=== PATIENT | male | born 1960 | race African-American/Black ===

== ENCOUNTER 2020-09-10 10:36 | Emergency (ER) | payer BC ==
[~2020-09-10] VITALS: Ht 167.6 cm; Wt 61.0 kg
[2020-09-10] MEDS ORDERED: IV NORMAL SALINE 1000ML BAG 1,000 ML IV ONE (11:00)
--- NOTE | 2020-09-10 11:14 | PHYS DOC ---
Past Medical History Past Medical History: No Pertinent History Past Surgical History: No Surgical History Smoking Status: Current Every Day Smoker Alcohol Use: Heavy Drug Use: None General Adult EDM: Chief Complaint: GROIN PAIN HPI: HPI: Patient is a 59 year old male presents with report of left groin pain that started on 08/28/2020. Patient reports he works at a [employer] and has been lifting and moving heavy objects. Patient reports concern for possible hernia. Patient reports some scrotal swelling and tenderness. Denies any nausea or vomiting. Denies fever or chills. Denies dysuria. Denies penile discharge. Patient denies concern for STD. Patient does report swelling has significantly improved during this period of time. Review of Systems: Review of Systems: Constitutional: Denies fever or chills Eyes: Denies redness or eye pain HENT: Denies nasal congestion or sore throat Respiratory: Denies cough or shortness of breath Cardiovascular: Denies chest pain or palpitations GI: Denies left lower quadrant abdominal pain; denies nausea or vomiting : Denies dysuria, penile discharge, or hematuria; reports scrotal swelling and pain on left Musculoskeletal: Denies back pain or joint pain Integument: Denies rash or skin lesions Neurologic: Denies headache, focal weakness or sensory changes Complete systems were reviewed and found to be within normal limits, except as documented in this note. Current Medications: Current Medications Medications (Trade) Dose Ordered Sig/Vero Start Time Stop Time Status Last Admin Dose Admin Ketorolac Tromethamine (Toradol 15mg Vial) 15 mg 1X ONCE 09/10/20 11:15 09/10/20 11:16 UNV Sodium Chloride 1,000 ml @ 1,000 mls/hr 1X ONCE 09/10/20 11:00 09/10/20 11:59 UNV Physical Exam: PE: Constitutional: Well developed, well nourished, no acute distress, non-toxic appearance HENT: Normocephalic, atraumatic Eyes: Conjunctiva normal, no discharge Neck: Normal range of motion, no tenderness, supple Lungs & Thorax: No respiratory distress, equal chest rise and fall Abdomen: Soft, no tenderness, no guarding/rebound tenderness : Left scrotal swelling, left testicular fullness and tenderness on palpation, no penile discharge Skin: Warm, dry, no erythema, no rash Extremities: No tenderness, ROM intact, no edema, left femoral lymphadenopathy noted Neurologic: Alert and oriented X 3, no focal deficits noted Psychologic: Affect normal, judgment normal Current Patient Data: Vital Signs: Vital Signs Date Time Temp Pulse Resp B/P (MAP) Pulse Ox O2 Delivery O2 Flow Rate FiO2 09/10/20 10:54 98.4 87 18 166/77 (106) 99 Room Air 98.4 EKG: EKG: [] Radiology/Procedures: Radiology/Procedures: PROCEDURE: TESTICULAR/SCROTUM EXAM: Scrotal sonogram. HISTORY: Left testicular pain and swelling. TECHNIQUE: Riley scale and color Doppler sonographic imaging of the testes with spectral waveform analysis was performed. COMPARISON: None. FINDINGS: The testes are normal in size and demonstrate normal symmetric blood flow. No focal testicular parenchymal lesion is seen. There is a moderate left hydrocele. There is a heterogeneous hypervascular left epididymis suggesting epididymitis. There is no inguinal hernia. There is no varicocele. There is a 2.4 cm left inguinal lymph node with benign fatty hilum and thin cortex, likely physiologic in etiology. IMPRESSION: 1. Heterogeneous hypervascular left epididymis suggesting ependymitis. 2. Moderate left hydrocele. 3. Unremarkable testes. Electronically signed by: Naheed Garcia MD (09/10/2020 11:52 AM) [id number] Course & Med Decision Making: Course & Med Decision Making Pertinent Labs and Imaging studies reviewed. (See chart for details) Patient presents with left scrotal swelling and tenderness. Patient reports swelling has significantly improved. Reports concern for possible hernia. Patient noted to have scrotal fullness and tenderness. No penile discharge noted. Labs obtained and posted to chart. UA without signs of infection. Testicular ultrasound obtained with findings of moderate hydrocele combined with signs of acute epididymitis. Chlamydia/gonorrhea cultures pending. Empiric antibiotic therapy provided. Pain addressed. Patient stable for discharge with outpatient follow-up with PCP/urology. PCP referral list provided. Patient advised to call his insurance company regarding referral for urology. A copy of ultrasound report provided to patient to give to these physicians. Discussed findings and plan with patient, who acknowledges understanding and agreement. Kylie Disclaimer: Kylie Disclaimer: This electronic medical record was generated, in whole or in part, using a voice recognition dictation system. Departure Departure Impression: Primary Impression: Acute epididymitis Additional Impression: Hydrocele in adult Disposition: 01 DC HOME SELF CARE/HOMELESS Condition: STABLE Patient Instructions: Epididymitis Additional Instructions: Take over the counter Tylenol (acetaminophen) and or Motrin/Advil (ibuprofen) for pain or discomfort. Please call and make an appointment to see an Urologist for your ultrasound findings: Epididymitis and hydrocele. (see attached ultrasound report). Take antibiotics to completion. Scripts Ciprofloxacin Hcl (CIPRO) 500 Mg Tablet 1 TAB PO BID for 7 Days, #14 TAB 0 Refills Prov: MATY HEARD DO 09/10/20 Tramadol Hcl (TRAMADOL HCL) 50 Mg Tablet 50 MG PO Q6HRS PRN for PAIN, #14 TAB Prov: MATY HEARD DO 09/10/20 MATY HEARD DO Sep 10, 2020 11:14
[2020-09-10] MEDS ORDERED: KETOROLAC 15 MG/ML VIAL. IVP ONE (11:15)
[2020-09-10 11:18] LABS: BASO # 0.1 x10^3/uL (0.0-0.2); BASO % 2 % (0-3); EOS # 0.1 x10^3/uL (0.0-0.7); EOS % 1 % (0-3); HEMOGLOBIN 13.2 g/dL (13.0-17.5); LYMPH # 2.2 x10^3/uL (1.0-4.8); LYMPH % 27 % (24-48); MEAN CORPUSCULAR HEMOGLOBIN 32 pg (25-35); MEAN CORPUSCULAR HGB CONC 34 g/dL (31-37); MEAN CORPUSCULAR VOLUME 93 fL (79-100); MONO # 0.7 x10^3/uL (0.0-1.1); MONO % 9 % (0-9); NEUT # 5.1 x10^3/uL (1.8-7.7); NEUT % 62 % (31-73); PLATELET COUNT 478 x10^3/uL (140-400); RED BLOOD COUNT 4.21 x10^6/uL (4.30-5.70); RED CELL DISTRIBUTION WIDTH 12.8 % (11.5-14.5); WHITE BLOOD COUNT 8.2 x10^3/uL (4.0-11.0)
[2020-09-10 11:32] LABS: CALCIUM 9.2 mg/dL (8.5-10.1); CREATININE 0.9 mg/dL (0.7-1.3); GFR 86.4; POTASSIUM 3.8 mmol/L (3.5-5.1)
[2020-09-10 11:38] LABS: ALBUMIN 3.2 g/dL (3.4-5.0); ALBUMIN/GLOBULIN RATIO 0.6 (1.0-1.7); MAGNESIUM 1.8 mg/dL (1.8-2.4); TOTAL BILIRUBIN 0.4 mg/dL (0.2-1.0); TOTAL PROTEIN 8.4 g/dL (6.4-8.2)
--- NOTE | 2020-09-10 11:54 | RAD ---
EXAM: Scrotal sonogram. HISTORY: Left testicular pain and swelling. TECHNIQUE: Riley scale and color Doppler sonographic imaging of the testes with spectral waveform anal ysis was performed. COMPARISON: None. FINDINGS: The testes are normal in size and demonstrate normal symmetric blood flow. No focal testicu lar parenchymal lesion is seen. There is a moderate left hydrocele. There is a heterogeneous hypervas cular left epididymis suggesting epididymitis. There is no inguinal hernia. There is no varicocele. T here is a 2.4 cm left inguinal lymph node with benign fatty hilum and thin cortex, likely physiologic in etiology. IMPRESSION: 1. Heterogeneous hypervascular left epididymis suggesting ependymitis. 2. Moderate left hydrocele. 3. Unremarkable testes. Electronically signed by: Naheed Garcia MD (09/10/2020 11:52 AM) [id number]
[2020-09-10 12:10] LABS: BILIRUBIN,URINE NEGATIVE (NEG); CLARITY,URINE CLEAR; COLOR,URINE YELLOW; NITRITE,URINE NEGATIVE (NEG); PROTEIN,URINE NEGATIVE (NEG-TRACE); UROBILINOGEN,URINE 0.2 mg/dL (0.2 mg/dL)
[2020-09-10 12:20] LABS: BACTERIA,URINE FEW /HPF (0-FEW)
[2020-09-10 12:21] LABS: RBC,URINE 0 /HPF (0-2)
[2020-09-10] MEDS ORDERED: cefTRIAXone IM 250 MG VIAL IM ONE (12:30)
[2020-09-10] MEDS ORDERED: AZITHROMYCIN 250 MG TABLET. PO ONE (12:30)
[2020-09-10] MEDS ORDERED: TRAM50TA PO (12:52)
[2020-09-10] MEDS ORDERED: CIPR500T94 PO (12:52)
[2020-09-10 13:00] VITALS: BP 142/71
== END 2020-09-10 13:06 | disposition home or self-care (01) ==
LOC: ER 10:36
DX: N45.1 Epididymitis (principal); N43.3 Hydrocele, unspecified; F17.200 Nicotine dependence, unspecified, uncomplicated; F10.20 Alcohol dependence, uncomplicated; Y90.9 Presence of alcohol in blood, level not specified
CPT/HCPCS: 36415; 76870; 80053; 81001; 83605; 83690; 83735; 85025; 87086; 87491; 87591; 96361; 96372; 96374; 99284; J0696; J1885; J7030